=== PATIENT | male | born 1985 | race Caucasian/White ===

== ENCOUNTER 2018-06-26 18:26 | Emergency (ER) | payer OTHER ==
[2018-06-26 20:11] VITALS: BP 00/00
== END 2018-06-26 20:10 | disposition left against medical advice (07) ==
LOC: ED 18:26
DX: R10.11 Right upper quadrant pain (principal); Z53.21 Procedure and treatment not carried out due to patient leaving prior to being seen by health care provider

== ENCOUNTER 2018-06-26 22:43 | Emergency (ER) | payer OTHER ==
--- NOTE | 2018-06-27 00:33 | ED ---
Abdominal Pain/Male - HPI Summary HPI Summary: Pt. is a 32 y.o who presents to the ER for evaluation of RUQ abd. pain x 6 months. Pt. states pain is worse after eating sugary foods. Pt. states he recently got insurance and presents tonight for initial evaluation. Does not have PCP. Pt. denies fever, chills, CP, SOB, V/N/D/C, urinary sxs. No past medical hx. Pain is minimal at this time. Symptoms are moderate in severity. No current modifying factors. - History of Current Complaint Chief Complaint: EDAbdPain Stated Complaint: RIGHT SIDED PAIN PER PT Time Seen by Provider: 06/27/18 00:32 Hx Obtained From: Patient Pain Intensity: 3 - Allergies/Home Medications Allergies/Adverse Reactions: Allergies Allergy/AdvReac Type Severity Reaction Status Date / Time No Known Allergies Allergy Verified 06/26/18 22:53 PMH/Surg Hx/FS Hx/Imm Hx Previously Healthy: Yes Infectious Disease History: No Infectious Disease History: Denies: Traveled Outside the [place] in Last 30 Days - Family History Known Family History: Positive: Non-Contributory - Social History Occupation: Works From/At Home Lives: Alone Review of Systems Constitutional: Negative Negative: Fever, Chills Eyes: Negative ENT: Negative Cardiovascular: Negative Respiratory: Negative Positive: Abdominal Pain. Negative: Vomiting, Diarrhea, Nausea Genitourinary: Negative Negative: dysuria, flank pain, hematuria Neurological: Negative All Other Systems Reviewed And Are Negative: Yes Physical Exam Triage Information Reviewed: Yes Vital Signs On Initial Exam: Initial Vitals Temp Pulse Resp BP Pulse Ox 98.1 F 87 16 134/78 99 06/26/18 22:50 06/26/18 22:50 06/26/18 22:50 06/26/18 22:50 06/26/18 22:50 Vital Signs Reviewed: Yes Appearance: Positive: Well-Appearing - Pt. sitting up in bed in NAD. Pleasant. Skin: Positive: Warm, Dry Head/Face: Positive: Normal Head/Face Inspection Eyes: Positive: Normal, EOMI, EJ Neck: Positive: Supple Respiratory/Lung Sounds: Positive: Clear to Auscultation, Breath Sounds Present Cardiovascular: Positive: Normal, RRR Abdomen Description: Positive: Other: - Abd. is soft with mild tenderness to RUQ. Negative luna sign. No rebound tenderness or guarding. Musculoskeletal: Positive: Normal, Strength/ROM Intact Neurological: Positive: Normal, CN Intact II-III Psychiatric: Positive: Affect/Mood Appropriate Diagnostics - Vital Signs Vital Signs Temp Pulse Resp BP Pulse Ox 06/26/18 22:50 98.1 F 87 16 134/78 99 - Laboratory Result Diagrams: 06/27/18 00:41 06/27/18 00:41 Lab Statement: Any lab studies that have been ordered have been reviewed, and results considered in the medical decision making process. Abdominal Pain Male Course/Dx - Course Course Of Treatment: Patient presenting with ongoing intermittent right upper quadrant abdominal pain for several months. He is afebrile with stable vital signs. Patient has benign abdominal exam with minimal tenderness. Suspect cholelithiasis versus biliary dyskinesia. We currently do not have ultrasound available given time. Basic labs obtained and are unremarkable. Patient currently does not have a family doctor. He was given information for the [facility] and advised to schedule close follow-up appointment and to get scheduled for an outpatient ultrasound further evaluation. Counseled on foods to avoid. Advised to return to the ER for increased pain, fever, vomiting or if concerned. Patient understands and agrees with plan. - Diagnoses Differential Diagnosis/HQI/PQRI: Constipation, Gall Bladder Disease, Renal Colic , Ureteral Stone, Urinary Tract Infection Provider Diagnoses: Right upper quadrant abdominal pain Discharge - Sign-Out/Discharge Documenting (check all that apply): Patient Departure Patient Received Moderate/Deep Sedation with Procedure: No - Discharge Plan Condition: Good Disposition: HOME Patient Education Materials: Biliary Colic (ED), Gallstones (ED) Referrals: [facility] [Outside] Additional Instructions: Call the [facility] tomorrow for a follow up appointment You will need an outpatient ultrasound of gallbladder to evaluate for gallstones Avoid foods high in fat, sugar, grease Return to ER for worsening/persistent pain, fever, vomiting or if concerned - Billing Disposition and Condition Condition: GOOD Disposition: Home
[2018-06-27 01:10] LABS: ABS Basophils 0.1 10^3/ul (0-0.2); ABS Eosinophils 0.2 10^3/ul (0-0.6); ABS Lymphocytes 2.4 10^3/ul (1.0-4.8); ABS Monocytes 0.7 10^3/ul (0-0.8); ABS Neutrophils 6.2 10^3/ul (1.5-7.7); ABS Nucleated RBC 0 10^3/ul; Eosinophil % 2.6 %; Hematocrit 42 % (36-46); Hemoglobin 13.7 g/dL (14.0-18.0); Lymphocyte % 25.2 %; Mean Corpuscular HGB Conc 33 g/dL (31-36); Mean Corpuscular Hemoglobin 29 pg (27-31); Mean Corpuscular Volume 90 fL (80-94); Mean Platelet Volume 9.2 fL (7.4-10.4); Nucleated Red Blood Cells % 0.1; Platelet Count 203 10^3/uL (150-450); Red Blood Count 4.66 10^6 /uL (4.18-5.48); Red Cell Distribution Width 13 % (10.5-15); White Blood Count 9.6 10^3/uL (3.5-10.8)
[2018-06-27 01:38] LABS: Urine Appearance Clear; Urine Bilirubin Negative (Negative); Urine Blood Negative (Negative); Urine Color Yellow; Urine Glucose Negative (Negative); Urine Ketones Trace (Negative); Urine Nitrite Negative (Negative); Urine Protein Negative (Negative); Urine Specific Gravity 1.021 (1.010-1.030); Urine Urobilinogen Negative (Negative)
[2018-06-27 02:02] LABS: Albumin 4.4 g/dL (3.2-5.2); Albumin/Globulin Ratio 1.7 (1-3); C Reactive Protein 1.55 mg/L (<8.01); Calcium 9.3 mg/dL (8.6-10.3); EGFR African American 112.5 (>60); Globulin 2.6 g/dL (2-4); Potassium 3.9 mmol/L (3.5-5.0); Total Bilirubin 0.7 mg/dL (0.2-1.0)
[2018-06-27 03:55] VITALS: BP 128/76
== END 2018-06-27 02:05 | disposition home or self-care (01) ==
LOC: ED 22:43
DX: R10.11 Right upper quadrant pain (principal)
CPT/HCPCS: 36415; 80053; 81003; 83690; 85025; 86140; 99282

== ENCOUNTER 2018-07-06 13:57 | Emergency (ER) | payer OTHER ==
[2018-07-06] MEDS ORDERED: Fluorescein Sodium TOPICAL* 1 MG TEST STRIP OPHTHALMIC ONE (14:17)
--- NOTE | 2018-07-06 15:06 | ED ---
Throat Pain/Nasal Congestion - HPI Summary HPI Summary: This patient is a 32 year old male presenting to [facility] with a chief complaint of left eye pain since 3 days ago. Patient states that he has been having discomfort in his left eye. He does not know if there has been any injury. Patient thinks that something may have gotten into the eye. The eye itself has been red and irritated for the past 3 days. The pain is rated 3/10 in severity. Symptoms aggravated by rubbing, bright light. Symptoms alleviated by nothing. Patient additionally notes exudate when waking up in the morning. - History of Current Complaint Chief Complaint: EDEyeProblem Time Seen by Provider: 07/06/18 14:56 Hx Obtained From: Patient Onset/Duration: Lasting Days, Still Present Severity: Mild Cough: None - Allergies/Home Medications Allergies/Adverse Reactions: Allergies Allergy/AdvReac Type Severity Reaction Status Date / Time No Known Allergies Allergy Verified 07/06/18 14:04 PMH/Surg Hx/FS Hx/Imm Hx Previously Healthy: Yes Opthamlomology History: Denies: Hx Legally Blind EENT History: Denies: Hx Deafness Infectious Disease History: No Infectious Disease History: Denies: Traveled Outside the [place] in Last 30 Days - Family History Known Family History: Negative: Hypertension, Other - colitis - Social History Alcohol Use: None Hx Substance Use: Yes Substance Use Type: Reports: Marijuana Hx Tobacco Use: No Smoking Status (MU): Never Smoked Tobacco Review of Systems Negative: Fever Eyes: Other - left eye pain Positive: Erythema, Other - exudate in the morning Gastrointestinal: Negative Skin: Negative All Other Systems Reviewed And Are Negative: Yes Physical Exam - Summary Physical Exam Summary: Appearance: well appearing, no pain distress Skin: warm, dry, reflects adequate perfusion Head/face: normal Eyes: EOMI, EJ. Eyelids are everted. Mild conjunctival erythema ENT: mucous membranes moist Neck: supple, non-tender Respiratory: CTA, breath sounds present Cardiovascular: RRR, pulses symmetrical Abdomen: non-tender, soft Bowel Sounds: present Musculoskeletal: normal, strength/ROM intact Neuro: normal, sensory motor intact, A&Ox3 Triage Information Reviewed: Yes Vital Signs On Initial Exam: Initial Vitals Temp Pulse Resp BP Pulse Ox 98.4 F 68 14 123/68 99 07/06/18 14:04 07/06/18 14:04 07/06/18 14:04 07/06/18 14:04 07/06/18 14:04 Vital Signs Reviewed: Yes Procedures - Procedure Summary Procedure Summary: Eye Irrigation: Everted eyelids. Fluoriscin stain applied. No foreign body located. Topical anesthetic with some pain relief Diagnostics - Vital Signs Vital Signs Temp Pulse Resp BP Pulse Ox 07/06/18 14:04 98.4 F 68 14 123/68 99 - Laboratory Lab Statement: Any lab studies that have been ordered have been reviewed, and results considered in the medical decision making process. EENT Course/Dx - Course Course Of Treatment: Nurse's notes reviewed. No evidence of foreign body on after lid eversion. Negative fluorescein staining. Normal pupillary exam with midrange reactive pupil. Mild conjunctival irritation with discharge in the mornings. Likely viral in nature. Prescribed erythromycin ointment. Follow- up with eye doctor. - Differential Diagnoses Differential Diagnoses: Other - Iritis/uveitis, conjunctivitis, foreign body, keratitis - Diagnoses Provider Diagnoses: Conjunctivitis Discharge - Sign-Out/Discharge Documenting (check all that apply): Patient Departure Patient Received Moderate/Deep Sedation with Procedure: No - Discharge Plan Condition: Improved Disposition: HOME Prescriptions: Erythromycin OPTH OINT* [Erythromycin 0.5% OPTH OINT*] 1 applic LEFT EYE TID 5 Days #1 ophth.oint Loratadine [Claritin] 10 mg PO DAILY #14 capsule Patient Education Materials: Conjunctivitis (ED) Referrals: Pranav Mcqueen MD [Medical Doctor] - Additional Instructions: Call the eye doctor on Sunday to schedule prompt follow-up for full exam. Return with fever, increased eye pain, worse, more drainage, new symptoms or other concerns. - Billing Disposition and Condition Condition: IMPROVED Disposition: Home - Attestation Statements Document Initiated by Scribe: Yes Documenting Scribe: Baltazar Wu Provider For Whom Scribe is Documenting (Include Credential): Nemesio Figueroa MD Scribe Attestation: Baltazar Jeronimo scribed for Nemesio Figueroa MD on 07/06/18 at 1835. Scribe Documentation Reviewed: Yes Provider Attestation: The documentation as recorded by the Baltazar pat accurately reflects the service I personally performed and the decisions made by , Nemesio Figueroa MD Status of Scribe Document: Viewed
[2018-07-06 15:35] VITALS: BP 112/73
== END 2018-07-06 15:34 | disposition home or self-care (01) ==
LOC: ED 13:57
DX: H10.9 Unspecified conjunctivitis (principal)
CPT/HCPCS: 99282; A9270-GY